=== PATIENT | female | born 1930 | race Caucasian/White ===

== ENCOUNTER 2016-11-28 12:57 | Emergency (ER) | payer MEDICARE, OTHER ==
--- NOTE | ~2016-11-28 | CT52 ---
[facility] A Service of [facility] RADIOLOGY TEXT RESULTS PATIENT: SERENA JAY LOCATION: SED : 30 UNIT #: [id number] AGE: [address]: Elis Avila MD SEX: F ORDER DR: [id number] [address] [address] [id number] E MR#: [id number] Acc #: [id number] NAME: SERENA JAY : 1930 SEX: F STUDY DATE/TIME: 11/28/2016 12:37 UNIT: SED ROOM: STUDY DESCRIPTION: CT Cervical Spine Wo Cont Attending Physician: Elis Avila M.D. Referring Physician: Elis Avila M.D. Ordering Physician: Elis Avila M.D. Primary Care Physician: Keyshawn Fuller D.O. MEDICAL IMAGING REPORT This report is preliminary unless electronic signature is present. EXAM Cervical spine CT with and without contrast HISTORY Confusion. Patient fell a week ago with head and neck injury and neck pain. TECHNIQUE Axial 2 mm images were obtained through the cervical spine and sagittal and coronal reconstructions were generated. This CT exam was performed with one or more of the following radiation dose reduction techniques: automatic exposure control, adjustment of mA and/or kV according to patient size, and iterative reconstruction. FINDINGS There is marked disc space narrowing at C3-4, C4-5, C5-6 and C6-7. No fracture is identified. There is marked degenerative change. There is minimal anterior listhesis of C2 on C3. IMPRESSION There is no evidence of acute injury. There is marked degenerative change in the cervical spine. No significant bony spinal canal stenosis identified. Dictated by... Anthony Petty M.D. THIS IS AN ELECTRONICALLY VERIFIED REPORT Anthony Petty M.D. at 11/28/2016 4:22 PM [facility] A Service of [facility] RADIOLOGY TEXT RESULTS PATIENT: SERENA JAY LOCATION: SED : 30 UNIT #: [id number] AGE: [address]: Elis Avila MD SEX: F ORDER DR: [email or web address]/[email or web address] TD: 11/28/2016 13:44 JOB #: [id number] MEDICAL IMAGING REPORT Page 1 of 1
--- NOTE | ~2016-11-28 | CT71 ---
[facility] A Service of [facility] & [facility] RADIOLOGY TEXT RESULTS PATIENT: SERENA JAY LOCATION: SED : 30 UNIT #: [id number] AGE: [address]: Elis Avila MD SEX: F ORDER DR: [id number] [address] [address] [id number] E MR#: [id number] Acc #: [id number] NAME: SERENA JAY : 1930 SEX: F STUDY DATE/TIME: 11/28/2016 12:34 UNIT: SED ROOM: STUDY DESCRIPTION: CT Head Wo Contrast Attending Physician: Elis Avila M.D. Referring Physician: Elis Avila M.D. Ordering Physician: Elis Avila M.D. Primary Care Physician: Keyshawn Fuller D.O. MEDICAL IMAGING REPORT This report is preliminary unless electronic signature is present. EXAM CT head without contrast INDICATION: Confusion. Patient fell 1 week ago and hit her head. She apparently also has a history of dementia. TECHNIQUE Axial CT images were obtained from vertex of the skull through skull base. No intravenous contrast was administered. The CT exam was performed with one or more of the following radiation dose reduction techniques: automatic exposure control, adjustment of mA and/or kV according to patient size, and iterative reconstruction. FINDING No acute intracranial hemorrhage is identified. There is diffuse cerebral atrophy with compensatory ventricular dilatation in keeping with the 86. Advanced periventricular and deep white matter microangiopathic disease is noted. Focal areas of decreased attenuation are identified within the basal ganglia bilaterally which is likely reflect old infarcts. I do not think these are probably significantly changed when compared to the prior study. There is no midline shift or mass effect. There is dense atherosclerotic involvement of the cavernous carotid arteries. There is some mucosal thickening and noted in the ethmoid sinuses as well as mucous retention cyst within the left sphenoid sinus. No calvarial fracture is seen. No focal soft tissue abnormalities are identified. IMPRESSION 1. No acute intracranial hemorrhage identified. 2. Advanced cerebral atrophy and microangiopathic disease. 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 3. Mild sinus inflammatory changes. STS. [facility] A Service of [facility] & [facility] RADIOLOGY TEXT RESULTS PATIENT: SERENA JAY [place] [facility] [place]IT #: [id number] AGE: [address]: Elis Avila MD SEX: F ORDER DR: Dictated by... Adri Cade M.D. THIS IS AN ELECTRONICALLY VERIFIED REPORT Adri Cade M.D. at 11/28/2016 4:37 PM AFF/beth TD: 11/28/2016 13:31 JOB #: [id number] MEDICAL IMAGING REPORT Page 1 of 1
[~2016-11-28 12:57] MED LIST: ASPIRIN; BENADRYL; CALTRATE; CENTRUM SILVER; CIPRO PO; COLACE; FLAGYL PO; HYDROCODONE-APA1 T57 PO; LEVAQUIN PO; LEVAQUIN750 M1 PO; LIPITOR; LOTREL 5/20 MG1 CAP PO; MIRALAX17 GM; NASONEX17 GM; NEXIUM; NORVASC; NORVASC PO; PREVACID 24HR15 MG PO; TYLENOL PM PO; VIBRAMYCIN100 M1 PO; VICODIN PO; VIT B12; VITAMIN B12; VITAMIN D 4001 UDTAB PO; ZOCOR PO; ZOLOFT
[2016-12-17] MEDS ORDERED: REMERON15 MG PO (10:01)
[2016-12-17] MEDS ORDERED: NORVASC10 MG PO (10:03)
[2016-12-17] MEDS ORDERED: VITAMIN B12-FO1 EACH PO (10:03)
[2016-12-17] MEDS ORDERED: VITAMIN D31000 UNI1 PO (10:04)
[2016-12-17] MEDS ORDERED: SENNA PO (10:04)
== END 2016-11-28 13:50 | disposition home or self-care (01) ==
LOC: SED 12:57
DX: M54.2 Cervicalgia (principal); R41.0 Disorientation, unspecified; E78.5 Hyperlipidemia, unspecified; K21.9 Gastro-esophageal reflux disease without esophagitis; I10 Essential (primary) hypertension; F17.210 Nicotine dependence, cigarettes, uncomplicated; Z88.0 Allergy status to penicillin; Z88.8 Allergy status to other drugs, medicaments and biological substances; Z79.899 Other long term (current) drug therapy
CPT/HCPCS: 70450; 72125; 99284

== ENCOUNTER → 2016-12-17 | Outpatient (CLI) | payer MEDICARE, OTHER ==
[~2016-12-17] MED LIST changes: +ARICEPT5 M1 PO; +NORVASC10 MG PO; +REMERON15 MG PO; +SENNA PO; +VITAMIN B12-FO1 EACH PO; +VITAMIN D31000 UNI1 PO
== END | disposition home or self-care (01) ==
LOC: CSSDAY 09:29
DX: M81.0 Age-related osteoporosis without current pathological fracture (principal); Z78.0 Asymptomatic menopausal state
CPT/HCPCS: 96372; J0897

== ENCOUNTER 2017-04-16 04:05 | Emergency (ER) | payer MEDICARE, OTHER ==
[~2017-04-16] VITALS: Ht 149.9 cm; Wt 39.0 kg
--- NOTE | ~2017-04-16 | CR72 ---
[facility] A Service of [facility] & [facility] RADIOLOGY TEXT RESULTS PATIENT: SERENA JAY LOCATION: [facility] : 30 UNIT #: [id number] AGE: [address]: Keyshawn Flanagan MD SEX: F ORDER DR: [id number] [facility] [address] [place], [place] [address] [id number] E MR#: [id number] Acc #: [id number] NAME: SERENA JAY : 1930 SEX: F STUDY DATE/TIME: 04/16/2017 05:44 UNIT: [facility] ROOM: STUDY DESCRIPTION: CR Chest Single View Portable Attending Physician: Keyshawn Flanagan M.D. Ordering Physician: Keyshawn Flanagan M.D. Primary Care Physician: Keyshawn Fuller D.O. MEDICAL IMAGING REPORT This report is preliminary unless electronic signature is present EXAM Portable chest, 04/16 at 05:44. INDICATIONS Weakness and shortness of air since last night. FINDINGS AP portable chest is compared with 12/08/2005. There is mild cardiomegaly. The thoracic aorta is tortuous and ectatic. There is diffuse atherosclerotic calcification. The lungs appear emphysematous. There is mild infiltrate or atelectasis in the bases. No pneumothorax is seen. There is diffuse degenerative disease in the spine. IMPRESSION Mild cardiomegaly with tortuous ectatic thoracic aorta. Lungs have an emphysematous appearance. There is some mild atelectasis or infiltrate in both bases. Dictated by... Keyshawn Collins Jr., M.D. THIS IS AN ELECTRONICALLY VERIFIED REPORT Keyshawn Collins Jr., M.D. at 04/17/2017 6:05 AM CHUY/oscar TD: 04/16/2017 10:33 JOB #: [id number] MEDICAL IMAGING REPORT Page 1 of 1 COPY
--- NOTE | ~2017-04-16 | EKG ---
PATIENT: SERENA JAY UNIT #: [id number] Ventricular Rate: 76 BPM Atrial Rate: 76 BPM P-R Interval: 166 ms QRS Duration: 142 ms Q-T Interval: 420 ms QTC Calculation(Bezet): 472 ms P [place]: 67 degrees Calculated R [place]: -103 degrees Calculated T [place]: 45 degrees Diagnosis Line: Normal sinus rhythm Diagnosis Line: Right bundle branch block Diagnosis Line: Abnormal ECG Diagnosis Line: No previous ECGs available Diagnosis Line: Confirmed by BARBARA HAMM MD ([id number]) on Diagnosis Line: 04/16/2017 3:29:04 PM INTERPRETING MD: PRUDENCE
[~2017-04-16 04:05] MED LIST changes: -ARICEPT5 M1 PO
[2017-04-16] MEDS ORDERED: ARICEPT5 M1 PO (04:09)
[2017-04-16 04:58] LABS: URINE SOURCE CLEAN CATCH
[2017-04-16 05:02] LABS: BASOPHIL% 0.8 % (0-2.5); EOSINOPHIL# 0.1 X10e3 (0-0.7); EOSINOPHIL% 1.5 % (0.0-7.0); HEMATOCRIT 48.7 % (35.0-45.0); HEMOGLOBIN 16.4 gm/dL (12.0-16.0); LYMPHOCYTE# 1.8 X10e3 (1.0-3.5); MEAN CELL VOLUME 92.9 FL (83-96); MEAN CORPUSCULAR HEMOGLOBIN 31.2 PG (28-34); MEAN CORPUSCULAR HGB CONC 33.6 g/dL (30-36); MEAN PLATELET VOLUME 6.7 FL (6.5-11.5); MONOCYTE# 0.7 X10e3 (0-1.0); MONOCYTE% 10.6 % (3.0-12.0); NEUTROPHIL# 3.8 X10e3 (1.5-7.1); NEUTROPHIL% 59.1 % (40-75); PLATELET COUNT 297 X10e3 (140-420); RED BLOOD COUNT 5.25 X10e (3.90-5.30); WHITE BLOOD COUNT 6.4 X10e3 (4.0-10.5)
[2017-04-16 05:02] LABS: URINE APPEARANCE CLEAR; URINE BILIRUBIN NEG (NEG); URINE BLOOD TRACE (NEG); URINE COLOR YELLOW; URINE GLUCOSE NEG (NEG); URINE KETONE NEG (NEG); URINE LEUKOCYTE ESTERASE NEG (NEG); URINE NITRATE NEG (NEG); URINE PH 7.5 (5-8); URINE PROTEIN NEG (NEG); URINE SPECIFIC GRAVITY 1.007 (1.003-1.035)
[2017-04-16 05:03] LABS: DIFF IND NO
[2017-04-16 05:05] LABS: URINE BACTERIA AUWI NEG (NEGATIVE); URINE SQUAMOUS EPITHELIAL CELL NONE SEEN /[HPF]; UWBCS1 AUWI 0-2 (0-5)
[2017-04-16 05:06] LABS: CULTURE INDICATED? NO
[2017-04-16 05:08] LABS: POC - CKMB 2.3 ng/mL (0.0-7.9); POC - TROPONIN <0.05 ng/mL (<=0.05)
[2017-04-16 05:28] LABS: ALBUMIN SERUM 3.9 g/dL (3.5-5.0); BILIRUBIN, DIRECT 0.1 mg/dL (0.0-0.2); BILIRUBIN,INDIRECT 0.6 mg/dL (0.0-0.9); BILIRUBIN,TOTAL 0.7 mg/dL (0.2-2.0); BUN/CREATININE RATIO 11.11; CALCIUM SERUM 8.3 mg/dL (8.4-10.2); CREATININE SERUM 0.9 mg/dL (0.6-1.4); GLOM FILT RATE Estimated 57.9 mL/min (>60); POTASSIUM 3.5 mmol/L (3.5-5.1); PROTEIN TOTAL SERUM 6.5 g/dL (6.0-8.3)
== END 2017-04-16 06:13 | disposition home or self-care (01) ==
LOC: CED 04:05
PROVIDERS: Emergency Medicine
DX: J84.9 Interstitial pulmonary disease, unspecified (principal); F17.200 Nicotine dependence, unspecified, uncomplicated; F03.90 Unspecified dementia, unspecified severity, without behavioral disturbance, psychotic disturbance, mood disturbance, and anxiety; Z88.8 Allergy status to other drugs, medicaments and biological substances; Z88.0 Allergy status to penicillin
CPT/HCPCS: 36415; 51702; 71010; 80048; 80076; 81003; 82553; 83605; 84484; 85025; 87040; 93005; 99285